=== PATIENT | male | born 1940 | race Caucasian/White ===

== ENCOUNTER 2016-09-21 14:04 | Emergency (ER) | payer MEDICARE, BC ==
[~2016-09-21] VITALS: Ht 182.9 cm; Wt 96.4 kg
[~2016-09-21 14:04] MED LIST: APIX5 PO; DIGO.25 PO; DILTCD240 PO; FEXO180 PO; OMEP20TA PO
[2016-09-21 14:18] VITALS: BP 132/65; PULSE 84; RESP 16; TEMP 96.4
[2016-09-21] MEDS ORDERED: OMEP20TA PO (14:38)
[2016-09-21] MEDS ORDERED: DILT1TAB4 PO (14:38)
[2016-09-21] MEDS ORDERED: APIX5TAB PO (14:38)
[2016-09-21] MEDS ORDERED: FEXO15TA PO (14:38)
[2016-09-21] MEDS ORDERED: DIGO0.12 PO (14:38)
[2016-09-21] MEDS ORDERED: TETANUS/DIPHTHERIA TOXOID ADULT 0.5 ML VIAL IM ONE (15:00)
[2016-09-21] MEDS ORDERED: LIDOCAINE 1%/EPINEPHrine 1:100,000 SOLN 20 ML VIAL INFIL ONE (15:00)
--- NOTE | 2016-09-21 15:02 | PD ---
HPI Chief Complaint: Fall Time Seen by Provider: 14:46 Travel History International Travel<30 days: No Contact w/Intl Traveler<30days: No Traveled to known affect area: No History of Present Illness HPI 76-year-old male presents emergency department following a trip and fall. He states he was watching birds walking across his driveway and got distracted and tripped on the curb. He fell and has a lack over his right brow. No LOC. He also has some scrapes on his right knee and right elbow. Little bit of tenderness in his left hand where he broke his fall. He is on blood thinners for A. fib. This happened just prior to arrival. He otherwise has been feeling generally well and healthy. History Past Medical History Narrative Medical Hypertension A. fib, on Eliquis, diltiazem, digoxin GERD Tetanus Vaccination: Unknown Social History Alcohol Use: Yes (3/DAY) Tobacco Use: No (QUIT 35 YRS AGO) Allergies-Medications (Allergen,Severity, Reaction): Coded Allergies: Sulfa (Verified Allergy, Unknown, unknown, 09/21/16) Reported Meds & Prescriptions Reported Meds & Active Scripts Active Reported Omeprazole 20 Mg Tab 20 Mg PO DAILY Azul Allergy (Fexofenadine HCl) 180 Mg Tab 180 Mg PO DAILY Digoxin 0.125 Mg Tab 0.25 Mg PO DAILY Diltiazem ER 24 HR 240 Mg Ezio 240 Mg PO BID Eliquis (Apixaban) 5 Mg Tab 5 Mg PO BID Review of Systems Except as stated in HPI: all other systems reviewed are Neg Physical Exam Narrative GENERAL: Well-appearing 76-year-old man, no acute distress. SKIN: Warm and dry. HEAD: Normocephalic. There is a laceration over the right brow, about 1 cm, no surrounding ecchymosis or bruising. EYES: Pupils equal and round. No scleral icterus. No injection or drainage. ENT: No nasal bleeding or discharge. Mucous membranes pink and moist. NECK: Trachea midline. Moves neck freely. No apparent injury. CARDIOVASCULAR: Regular rate and rhythm. No murmur appreciated. RESPIRATORY: No accessory muscle use. Clear to auscultation. Breath sounds equal bilaterally. GASTROINTESTINAL: Abdomen soft, non-tender, nondistended. Hepatic and splenic margins not palpable. MUSCULOSKELETAL: No obvious deformities. No edema. A 2 cm skin tear on the right elbow. Small abrasion on the right knee. Little bit of pain in the left wrist. No obvious tenderness. No ecchymosis or bruising. Full range of motion. NEUROLOGICAL: Awake and alert. No obvious cranial nerve deficits. Motor grossly within normal limits. Normal speech. PSYCHIATRIC: Appropriate mood and affect; insight and judgment normal. Data Data Last Documented VS Vital Signs Date Time Temp Pulse Resp B/P Pulse Ox O2 Delivery O2 Flow Rate FiO2 09/21/16 14:33 16 96 Room Air 09/21/16 14:18 96.4 84 132/[address] Brain W/O Iv Contrast(Rout) (09/21/16 ) Tetanus/Diphtheria Tox Adult (Tetanus/Di (09/21/16 15:00) Lidocai-Epi 1%-1:100,000 Inj (Xylocaine- (09/21/16 15:00) MDM Medical Decision Making Medical Screen Exam Complete: Yes Emergency Medical Condition: Yes Interpretation(s) Head CT: No acute findings. Remote small enforcement right frontal white matter , left Carlos, robust pallidus, peripheral right cerebellum. Differential Diagnosis Head injury, laceration, arm injury, other Narrative Course Medical decision making 76-year-old male with trip and fall, on [employer]. We'll repair the laceration was right brow. CT head rule out bleed. A couple other scrapes and abrasions but without evidence of significant bony injury. Procedures Procedure Narrative LACERATION LOCATION: Right brow LENGTH: 1 cm NUMBER OF STITCHES/ERASMO: 5 REPAIR: The area of the laceration was prepped with Betadine and sterilely draped. The laceration was infiltrated with 1% lidocaine with epinephrine. The wound was copiously irrigated and explored without evidence of foreign body , tendon injury or neurovascular injury. The wound was closed using 6-0 Prolene. This was a single layer repair. A sterile dressing was applied. The patient was advised to keep the dressing clean and dry. Patient tolerated the procedure well. Diagnosis Primary Impression: Closed head injury Qualified Code: S09.90XA - Closed head injury, initial encounter Additional Impression: Scalp laceration Qualified Code: S01.01XA - Scalp laceration, initial encounter Additional Instructions: Keep wound clean and dry. Do not wet for 24 hours. After 24 hours and clean the wound gently with soap and water. Gently clean wound twice daily with soap and water. Do not soak wound. No swimming, hot tubs, or allowing wound to get too wet. Apply antibiotic ointment to wound twice daily. Return to the emergency department for any worsening pain, swelling, redness, significant bleeding, or any other new or worsening symptoms. Return to the ER in 5 days for suture removal. Med/Other Pt SpecificInfo: No Change to Meds Disposition: 01 DISCHARGE HOME Condition: Stable Martell Johnson MD Sep 21, 2016 15:02
--- NOTE | 2016-09-21 15:54 | RADHPO ---
EXAM DATE/TIME: 09/21/2016 15:09 [facility] COMPARISON: No previous studies available for comparison. INDICATIONS : Fall today, right supraorbital laceration. RADIATION DOSE: 59.59 CTDIvol (mGy) MEDICAL HISTORY : Hypertension. SURGICAL HISTORY : None. ENCOUNTER: Initial ACUITY: 1 day PAIN SCALE: 3/10 LOCATION: Right frontal head TECHNIQUE: Multiple contiguous axial images were obtained of the head. Using automated exposure control and adj ustment of the mA and/or kV according to patient size, radiation dose was kept as low as reasonably a chievable to obtain optimal diagnostic quality images. FINDINGS: Moderate matter ischemic changes, especially in the right frontal region. 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 No intracranial mass, hemorrhage or midline shift. No recent infarct. No hydrocephalus. Probable also remote infarct in the right cerebellar hemisphere peripherally. CONCLUSION: 1. No acute findings. 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 Noe Carreno MD on September 21, 2016 at 15:51 Board Certified Radiologist. This report was verified electronically.
[2016-09-21 16:34] VITALS: BP 128/64
== END 2016-09-21 16:39 | disposition home or self-care (01) ==
LOC: PHED 14:04
DX: S01.81XA Laceration without foreign body of other part of head, initial encounter (principal); I10 Essential (primary) hypertension; I48.91 Unspecified atrial fibrillation; Z79.01 Long term (current) use of anticoagulants; Z87.891 Personal history of nicotine dependence; Z23 Encounter for immunization; W01.0XXA Fall on same level from slipping, tripping and stumbling without subsequent striking against object, initial encounter
CPT/HCPCS: 12011; 70450; 90471; 90714